=== PATIENT | female | born 1975 | race Caucasian/White ===

== ENCOUNTER 2018-06-27 08:31 | Emergency (ER) | payer OTHER ==
[~2018-06-27] VITALS: Ht 154.9 cm; Wt 64.4 kg
[~2018-06-27 08:31] MED LIST: AMOXICILLIN500 MG PO; CLINDAMYCIN300 M1 PO; HAIR/SKIN/NAILS1 TAB; IBUPROFEN600 MG PO; LORTAB 5/3255 MG PO; LORTAB 7.5-3251 TAB PO; LORTAB 7.57.5 MG PO; MOTRIN800 MG PO; STERAPRED DS10 MG PO; ULTRAM50 M1 PO
[2018-06-27] MEDS ORDERED: PENICILLN VK500 MG PO (08:49)
[2018-06-27] MEDS ORDERED: MOTRIN400 MG PO (08:49)
[2018-06-27 08:58] VITALS: BP 122/83
== END 2018-06-27 09:02 | disposition home or self-care (01) ==
LOC: ED 08:31
DX: S02.5XXA Fracture of tooth (traumatic), initial encounter for closed fracture (principal); K08.89 Other specified disorders of teeth and supporting structures; W22.8XXA Striking against or struck by other objects, initial encounter; Y93.89 Activity, other specified; Y92.009 Unspecified place in unspecified non-institutional (private) residence as the place of occurrence of the external cause

== ENCOUNTER 2018-08-15 09:02 | Emergency (ER) | payer OTHER ==
[~2018-08-15] VITALS: Ht 154.9 cm; Wt 63.6 kg
[~2018-08-15 09:02] MED LIST changes: +MOTRIN400 MG PO; +PENICILLN VK500 MG PO
[2018-08-15] MEDS ORDERED: AMOXICILLIN500 MG PO (09:50)
[2018-08-15] MEDS ORDERED: TORADOL PO (09:50)
[2018-08-15 10:01] VITALS: BP 143/81
== END 2018-08-15 10:01 | disposition home or self-care (01) ==
LOC: ED 09:02
DX: K08.89 Other specified disorders of teeth and supporting structures (principal); K02.9 Dental caries, unspecified; M84.68XA Pathological fracture in other disease, other site, initial encounter for fracture; F17.210 Nicotine dependence, cigarettes, uncomplicated

== ENCOUNTER 2018-08-30 05:28 | Emergency (ER) | payer OTHER ==
[~2018-08-30] VITALS: Ht 154.9 cm; Wt 68.0 kg
[~2018-08-30 05:28] MED LIST changes: +TORADOL PO
[2018-08-30] MEDS ORDERED: CLARITHROMYCIN500 MG PO (06:58)
[2018-08-30 07:00] VITALS: BP 126/78
== END 2018-08-30 07:05 | disposition home or self-care (01) ==
LOC: ED 05:28
DX: J18.9 Pneumonia, unspecified organism (principal); J02.0 Streptococcal pharyngitis; F17.210 Nicotine dependence, cigarettes, uncomplicated; R05 Cough; R68.83 Chills (without fever)

== ENCOUNTER 2018-11-25 17:39 | Emergency (ER) | payer OTHER ==
[~2018-11-25] VITALS: Ht 154.9 cm; Wt 80.0 kg
[~2018-11-25 17:39] MED LIST changes: +CLARITHROMYCIN500 MG PO
[2018-11-25 18:40] VITALS: BP 133/81
== END 2018-11-25 18:40 | disposition home or self-care (01) ==
LOC: ED 17:39
DX: B34.9 Viral infection, unspecified (principal); J02.9 Acute pharyngitis, unspecified; R50.9 Fever, unspecified; F17.210 Nicotine dependence, cigarettes, uncomplicated; H92.02 Otalgia, left ear

== ENCOUNTER 2019-02-08 08:40 | Emergency (ER) | payer OTHER ==
[~2019-02-08] VITALS: Ht 154.9 cm; Wt 65.0 kg
[2019-02-08] MEDS ORDERED: AMOXICILLIN500 MG PO (09:05)
[2019-02-08] MEDS ORDERED: LORTAB 1010 MG PO (09:05)
[2019-02-08 09:09] VITALS: BP 134/66
== END 2019-02-08 09:13 | disposition home or self-care (01) ==
LOC: ED 08:40
DX: K04.7 Periapical abscess without sinus (principal); M84.48XA Pathological fracture, other site, initial encounter for fracture